=== PATIENT | female | born 1945 | race Caucasian/White ===

== ENCOUNTER → 2017-09-02 | Outpatient (CLI) | payer OTHER | LOC: BMCIMAGING 12:34 | PROVIDERS: ATTEND Internal Medicine | DX: Z12.31 Encounter for screening mammogram for malignant neoplasm of breast (principal); Z80.3 Family history of malignant neoplasm of breast | CPT/HCPCS: G0202 ==

== ENCOUNTER → 2017-11-01 | Outpatient (CLI) | payer OTHER | LOC: FIMAGING 10:43 | PROVIDERS: ATTEND Internal Medicine Endocrinology, Diabetes & Metabolism | DX: E04.2 Nontoxic multinodular goiter (principal) ==

== ENCOUNTER → 2017-12-05 | Outpatient (CLI) | payer OTHER | LOC: BMCIMAGING 13:41 | PROVIDERS: ATTEND Physician Assistant Medical | DX: R22.32 Localized swelling, mass and lump, left upper limb (principal); M25.742 Osteophyte, left hand ==

== ENCOUNTER → 2018-09-04 | Outpatient (CLI) | payer OTHER | LOC: BMCIMAGING 13:43 | PROVIDERS: ATTEND Internal Medicine | DX: Z12.31 Encounter for screening mammogram for malignant neoplasm of breast (principal); Z80.3 Family history of malignant neoplasm of breast; R92.8 Other abnormal and inconclusive findings on diagnostic imaging of breast; Z13.820 Encounter for screening for osteoporosis; Z78.0 Asymptomatic menopausal state; M85.88 Other specified disorders of bone density and structure, other site ==

== ENCOUNTER → 2018-09-15 | Outpatient (CLI) | payer OTHER | LOC: BMCIMAGING 09:47 | PROVIDERS: ATTEND Internal Medicine | DX: R92.8 Other abnormal and inconclusive findings on diagnostic imaging of breast (principal) ==

== ENCOUNTER → 2018-12-11 | Outpatient (CLI) | payer OTHER | LOC: BMCIMAGING 11:21 | PROVIDERS: ATTEND Internal Medicine | DX: M16.0 Bilateral primary osteoarthritis of hip (principal); M41.86 Other forms of scoliosis, lumbar region; M53.3 Sacrococcygeal disorders, not elsewhere classified ==